=== PATIENT | male | born 1970 | race Caucasian/White ===

== ENCOUNTER 2018-06-11 22:41 | Emergency (ER) | payer OTHER ==
[~2018-06-11] VITALS: Ht 188 cm; Wt 87.3 kg
[2018-06-11] MEDS ORDERED: ASPIRIN 81 MG CHEW TABLET PO ONE (23:15)
[2018-06-11] MEDS: METOPROLOL 5 MG/5 ML VIAL IV SCH ×3 (23:18→23:28)
[2018-06-11 23:23] LABS: BASO % 0.6 % (0.0-1.0); EOS # 0.2 10^3/uL (0.0-0.50); EOS % 3.7 % (0.0-3.0); HEMATOCRIT 43.3 % (42.0-52.0); HEMOGLOBIN 15.6 g/dl (13.5-17.5); LYMPH # 1.8 10^3/uL (1.5-4.5); LYMPH % 33.3 % (24.0-44.0); MEAN CORPUSCULAR HEMOGLOBIN 36.3 pg (27.0-33.0); MEAN CORPUSCULAR VOLUME 100.7 fl (80.0-96.0); MONO # 0.8 10^3/uL (0.0-0.8); NEUTROPHILS # 2.6 10^3/uL (1.8-7.7); PLATELET COUNT, AUTOMATED 247 10^3/uL (150-450); WHITE BLOOD COUNT 5.4 10^3/uL (4.0-10.0)
[2018-06-11] MEDS ORDERED: METOPROLOL TART 25 MG TABLET PO ONE (23:30)
[2018-06-11 23:33] LABS: INR 0.89; PROTHROMBIN TIME 12.1 SECONDS (12.1-14.4)
[2018-06-11 23:34] LABS: PARTIAL THROMBOPLASTIN TIME 27.4 SECONDS (25.4-37.6)
[2018-06-11 23:36] LABS: D-DIMER QUANT 332.13 ng/ml (<500)
[2018-06-11 23:56] LABS: BLOOD UREA NITROGEN 16 MG/DL (7-18); CALCIUM LEVEL 8.8 MG/DL (8.5-10.1); CARBON DIOXIDE LEVEL 30 MEQ/L (21-32); CHLORIDE LEVEL 105 MEQ/L (98-107); CPK CREATINE PHOSPHOKINASE 122 U/L (39-308); CREATININE FOR GFR 1.05 MG/DL (0.70-1.30); GLOMERULAR FILTRATION RATE > 60.0 (>60); GLUCOSE, FASTING 165 MG/DL (70-100); MB/CK RELATIVE INDEX 1.07 (< OR =4); POTASSIUM SERUM 3.8 MEQ/L (3.5-5.1); SODIUM LEVEL 141 MEQ/L (136-145); TROPONIN I 0.39 NG/ML (< 0.10)
--- NOTE | 2018-06-12 00:57 | REP ---
Clinical: Acute chest pain . Comparison: None . Findings: The mediastinum and cardiac silhouette are stable and within normal limits for portable technique. The lung ocampo are clear without acute consolidation, effusion, or pneumothorax. Skeletal structures are intact. Impression: No acute cardiopulmonary process appreciated. Electronically Signed by Tai Mckenzie MD 06/12/2018 12:49 A
[2018-06-12 05:28] LABS: CK-MB VALUE MASS < 1.0 NG/ML (<3.6); CPK CREATINE PHOSPHOKINASE 105 U/L (39-308); MB/CK RELATIVE INDEX 0.95 (< OR =4); TROPONIN I 0.38 NG/ML (< 0.10)
[2018-06-12] MEDS ORDERED: METO1TAB87 PO (06:20)
[2018-06-12] MEDS ORDERED: ELIQ5TAB PO (06:20)
[2018-06-12 06:24] VITALS: BP 131/84
[2018-06-12] MEDS ORDERED: METOPROLOL TART 25 MG TABLET PO ONE (06:30)
[2018-06-12] MEDS ORDERED: APIXABAN 5 MG TAB (ELIQUIS) PO ONE (06:30)
[2018-06-12 07:03] VITALS: BP 135/84
--- NOTE | 2018-06-12 09:26 | ECGEPIP ---
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
--- NOTE | 2018-06-12 09:28 | ECGEPIP ---
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
== END 2018-06-12 07:18 | disposition home or self-care (01) ==
LOC: M ED 22:41
DX: I48.91 Unspecified atrial fibrillation (principal)

== ENCOUNTER → 2023-02-17 | Outpatient (CLI) | payer BC, OTHER ==
[~2023-02-17] MED LIST: ELIQ5TAB PO; METO1TAB87 PO
== END ==
LOC: M SOG 14:04
PROVIDERS: ATTEND Physician Assistant
DX: M79.672 Pain in left foot (principal)